=== PATIENT | female | born 1995 | race Caucasian/White ===

== ENCOUNTER 2016-07-24 21:30 | Emergency (ER) | payer OTHER | END 2016-07-25 00:35 | disposition home or self-care (01) | LOC: ER1 21:30 | DX: R07.2 Precordial pain (principal); Z88.2 Allergy status to sulfonamides | CPT/HCPCS: 71020; 93005; 99285 ==

== ENCOUNTER 2016-09-11 13:36 | Emergency (ER) | payer OTHER ==
[2016-09-11 15:41] LABS: HEMOGLOBIN 12.2 gm/dl (12.3-15.3); RED BLOOD COUNT 4.31 M/UL (4.00-5.10); WHITE BLOOD COUNT 3.5 K/UL (4.5-11.0)
[2016-09-11 15:57] LABS: BUN/CREATININE RATIO 8 (0-10)
== END 2016-09-11 19:00 | disposition home or self-care (01) ==
LOC: ER1 13:36
PROVIDERS: Specialist/Technologist Athletic Trainer
DX: R55 Syncope and collapse (principal); M32.9 Systemic lupus erythematosus, unspecified; Z88.2 Allergy status to sulfonamides
CPT/HCPCS: 36415; 71010; 80053; 81001; 84703; 85025; 93005; 99284

== ENCOUNTER → 2016-09-19 | Outpatient (CLI) | payer OTHER ==
[2016-09-19 12:14] LABS: HEMOGLOBIN 11.8 gm/dl (12.3-15.3); RED BLOOD COUNT 4.17 M/UL (4.00-5.10); WHITE BLOOD COUNT 2.6 K/UL (4.5-11.0)
[2016-09-19 12:36] LABS: BUN/CREATININE RATIO 8 (0-10)
== END ==
LOC: LAB 11:06
PROVIDERS: Internal Medicine
DX: Z13.1 Encounter for screening for diabetes mellitus (principal); Z13.220 Encounter for screening for lipoid disorders; D51.8 Other vitamin B12 deficiency anemias; E55.9 Vitamin D deficiency, unspecified; M32.9 Systemic lupus erythematosus, unspecified; R53.83 Other fatigue
CPT/HCPCS: 36415; 80053; 80061; 82607; 82746; 84439; 84443; 85025

== ENCOUNTER 2020-12-14 22:30 | Emergency (ER) | payer OTHER ==
[~2020-12-14 22:30] MED LIST: CELLCEPT500 MG PO; FEOSOL325 MG PO; LEVAQUIN500 MG PO; MACROBID 100 M100 MG PO; PLAQUENIL 200200 MG PO; SYNTHROID75 MCG PO
[2020-12-14] MEDS ORDERED: PENVEE K 500 M500 MG PO (22:45)
[2020-12-14] MEDS ORDERED: LODINE CAP 300300 MG PO (22:45)
[2020-12-14] MEDS ORDERED: LISINOPRIL10 MG PO (22:47)
== END 2020-12-14 22:51 | disposition home or self-care (01) ==
LOC: ER1 22:30
DX: K04.7 Periapical abscess without sinus (principal); K02.9 Dental caries, unspecified; I10 Essential (primary) hypertension; Z88.2 Allergy status to sulfonamides; F17.210 Nicotine dependence, cigarettes, uncomplicated
CPT/HCPCS: 99282